=== PATIENT | male | born 1945 | race Caucasian/White ===

== ENCOUNTER → 2021-06-13 08:59 | Outpatient (BNVA) | payer OTHER, SELFPAY | PROVIDERS: PCP Internal Medicine; Visit Provider Urology | DX: N40.0 Benign prostatic hyperplasia without lower urinary tract symptoms (principal); R35.1 Nocturia; R39.15 Urgency of urination; C67.9 Malignant neoplasm of bladder, unspecified | CPT/HCPCS: 51798 ==

== ENCOUNTER 2021-07-03 09:32 | Outpatient (REF) | payer OTHER, SELFPAY ==
[2021-07-03 17:11] LABS: Urine Cytology See Pathology rpt
== END 2021-07-03 09:33 | disposition home or self-care (01) ==
LOC: HO.LAB 09:32
PROVIDERS: PCP Internal Medicine; Visit Provider Urology
DX: C67.9 Malignant neoplasm of bladder, unspecified (principal); R35.1 Nocturia; N40.0 Benign prostatic hyperplasia without lower urinary tract symptoms
CPT/HCPCS: 88112

== ENCOUNTER 2021-08-02 11:38 | Outpatient (REF) | payer OTHER, SELFPAY ==
[2021-08-02 12:49] LABS: Binax Internal Control QC Valid; Binax Now Covid-19 Ag Negative (Negative)
== END 2021-08-02 11:39 | disposition home or self-care (01) ==
LOC: HO.LAB 11:38
PROVIDERS: Visit Provider Internal Medicine
DX: Z20.822 Contact with and (suspected) exposure to COVID-19 (principal)
CPT/HCPCS: 36415; C9803

== ENCOUNTER 2023-01-12 14:20 | Outpatient (REF) | payer OTHER, MEDICARE, SELFPAY | END 2023-01-12 14:21 | disposition home or self-care (01) | LOC: HO.SH 14:20 | PROVIDERS: Visit Provider Internal Medicine | DX: Z01.118 Encounter for examination of ears and hearing with other abnormal findings (principal); H90.3 Sensorineural hearing loss, bilateral | CPT/HCPCS: 92557; 92567; 92700 ==

== ENCOUNTER 2023-03-19 08:34 | Outpatient (REF) | payer SELFPAY ==
--- NOTE | 2023-03-19 16:29 | MHC.AU.HAS ---
Hearing Aid Evaluation Date of Visit: 03/19/23 Historical Information: Description of Hearing: Mild sensorineural hearing loss at 250 Hz in the right ear, rising to normal at 1000 Hz and sloping to profound at 2-8000 Hz. In the left ear there is a mild sensorineural hearing loss at 250 Hz, rising to borderline normal at 500 Hz, sloping to severe. Summary: Floyd visited the office today for a hearing aid evaluation. He was initially seen here for audiologic evaluation on 01/12/2023 and was referred to the ENT due to the asymmetry between his ears (R>L). His hearing was re-tested by the ENT and he was medically cleared for amplification by them. At today's appointment, Floyd reported that people around him are getting frustrated with his hearing loss because he frequently misses or miss-hears conversation. We talked about the different styles of hearing aids and the upsides and draw backs of behind the ear vs. in the ear aids. Floyd still lives a very active life as he still works and frequently sees other people. Given the considerations of his life style and the configuration of his hearing loss, we decided on a pair of Oticon Real 2 miniRITE-R hearing aids with length 2/100 receivers with power molds in Steel [employer]ang. Ear mold impressions were taken without incident. Floyd agreed with this plan and was quoted a total of $2,904 due at the fitting for a pair of level 3 hearing aids with rechargeable batteries and power molds. At this time he is opting out of our service agreement. Floyd does not think that his insurance has a hearing aid benefit, but he was encouraged to double check to know for sure prior to his fitting. He is willing to pay the quoted wolf even without insurance though. He paid $350 today for the hearing aid evaluation. We discussed the general time line of getting the hearing aids. Floyd will be contacted to set up a fitting appointment once the aids arrive. Hearing Aid Prescription: Based on the individual?s shared listening needs, communication environments, dexterity, desire for connectivity, and personal preferences, the following prescription for amplification has been made: Right ear: Hospital Chief Financial Officer: Oticon Model: Real 2 Battery Size: Rechargeable Color: Steel Liang De Alcoholizer: 2/100 Type of Mold: Power Mold Left ear: Left ear prescription to be same as Right Hearing Aid above: Hospital Chief Financial Officer: Oticon Model: Real 2 Battery Size: Rechargeable Color: Steel Liang De Alcoholizer: 2 Type of Mold: Power Mold Plan of Care: Patient wishes to purchase hearing aids as prescribed Action Taken/Action Needed: Earmold Impressions Taken Medical Clearance to be requested from PCP/ENT Hearing Instrument Fitting to be scheduled when materials arrive Primary Diagnosis: H90.3 Bilateral Sensorineural Hearing Loss Signature: Student/Clinical Fellow: Yes: Gabriela Hi, HIS Timekeeping Supervisor I have reviewed/agreed with student/fellow documentation: Yes Provider: Elvia Logan, [facility]
--- NOTE | 2023-03-19 16:32 | MHC.AU.MED ---
Medical Clearance for Hearing Instrumentation Date: 03/19/23 Patient Name: Floyd Thornton Date of : 1945 Referring Provider: José Patel MD We have seen your patient on 03/19/23 and have determined that they are a candidate for amplification (See accompanying report). Specifically, they would benefit from: Hearing aid use in both ears There is a statute that addresses Medical Evaluation Requirements prior to fitting a patient with a hearing aid. According to [place] statute 265 CMR:6.03(1), (a) General. Except as provided in 265 CMR 6.03(1)(b), a hearing aid mechanic shall not sell a hearing aid unless the prospective user has presented to the hearing aid mechanic a written statement signed by a licensed physician that states that the patient's hearing loss has been medically evaluated and the patient may be considered a candidate for a hearing aid. The medical evaluation must have taken place within the preceding six months. Please note: Due to the [place] Statute referenced above, we cannot accept a signature other than that of a licensed physician. STEAMER TENDER and PA signatures cannot be accepted. I am in agreement with the above recommendation. There is no medical contraindication for hearing instrumentation. Physician Signature Date Physician Name (Printed)
== END 2023-03-19 08:35 | disposition home or self-care (01) ==
LOC: HO.HAP 08:34
PROVIDERS: Visit Provider Internal Medicine
DX: Z46.1 Encounter for fitting and adjustment of hearing aid (principal); H90.3 Sensorineural hearing loss, bilateral
CPT/HCPCS: 92590

== ENCOUNTER 2023-04-29 10:38 | Outpatient (REF) | payer SELFPAY | END 2023-04-29 10:39 | disposition home or self-care (01) | LOC: HO.HAP 10:38 | PROVIDERS: Visit Provider Internal Medicine | DX: Z46.1 Encounter for fitting and adjustment of hearing aid (principal); H90.3 Sensorineural hearing loss, bilateral | CPT/HCPCS: V5257; V5264 ==